=== PATIENT | female | born 1955 | race Hispanic/Latino ===

== ENCOUNTER 2016-07-15 07:58 | Outpatient (CLI) | payer OTHER ==
--- NOTE | 2016-07-15 13:14 | Cat Scan Report ---
CT CHEST WITHOUT CONTRAST: 07/15/16 07:58:00 CLINICAL: Secondary polycythemia. Lung cancer screening. TECHNIQUE: Volumetric acquisition and 1.25 mm axial scan reconstructions without contrast. Sagittal and coronal reformats were performed. FINDINGS: The lungs are clear. No pulmonary nodule or mass. Mild lingular subsegmental atelectasis. No endobronchial mass. Small mediastinal lymph nodes. The largest lymph node is a retrocaval pretracheal lymph node measuring 1.2 x 1.1 cm. No hilar lymphadenopathy. The heart is normal size. Small pericardial effusion and mild thickening of the pericardium. Ectasia of the aorta and pulmonary arteries. The ascending aorta measures 3.9 cm in the main pulmonary artery measures 3.5 cm. The descending thoracic aorta measures 2.3 cm. Moderate calcification of the aorta. Small bilateral axillary lymph nodes. No supraclavicular or axillary lymphadenopathy. Normal trachea and esophagus. The thyroid is not imaged. The upper abdomen is remarkable for bilateral nonspecific perinephric stranding. The spleen is normal and measures 9 cm diameter. Mild degenerative change in the spine. IMPRESSION: 1. No evidence of lung cancer. 2. Probably benign mediastinal lymph nodes. 3. 3.9 cm fusiform aneurysm of the ascending aorta. 4. Ectasia of the main pulmonary artery and branch arteries. 5. Small pericardial effusion and mild pericardial thickening.
== END 2016-07-15 07:59 | disposition home or self-care (01) ==
LOC: SPVIMAG 07:58
PROVIDERS: ATTEND Internal Medicine Hematology
DX: Z12.2 Encounter for screening for malignant neoplasm of respiratory organs (principal); D72.829 Elevated white blood cell count, unspecified; I31.3 Pericardial effusion (noninflammatory); I70.0 Atherosclerosis of aorta; M47.899 Other spondylosis, site unspecified; I77.89 Other specified disorders of arteries and arterioles
CPT/HCPCS: 71250

== ENCOUNTER 2017-05-18 07:38 | Day surgery (SDC) | payer OTHER ==
[2017-05-18] MEDS ORDERED: ECOTRIN PO NR (08:00)
[2017-05-18] MEDS ORDERED: NACL 0.9% 500 ML 500 ML IV SCH (08:00)
[2017-05-18 08:18] LABS: Basophils # (Auto) 0.1 K/mm3 (0.0-0.1); Basophils % (Auto) 0.8 % (0.0-1.8); Eosinophils # (Auto) 0.3 K/mm3 (0.0-0.4); Eosinophils % (Auto) 2.8 % (0.0-4.3); Hematocrit 52.7 % (30.3-42.9); Lymphocytes # (Auto) 2.8 K/mm3 (1.2-5.4); Lymphocytes % (Auto) 26.7 % (13.4-35.0); Mean Corpuscular HGB Conc 32 % (30-34); Mean Corpuscular Hemoglobin 28 pg (28-32); Mean Corpuscular Volume 87 fl (79-97); Monocytes # (Auto) 0.6 K/mm3 (0.0-0.8); Monocytes % (Auto) 5.5 % (0.0-7.3); Platelet Count 212 K/mm3 (140-440); Red Blood Count 6.08 M/mm3 (3.65-5.03); Red Cell Distribution Width 15.9 % (13.2-15.2)
[2017-05-18 08:29] LABS: INR 1.06 (0.87-1.13)
[2017-05-18 08:59] LABS: BUN/Creatinine Ratio 27; Blood Urea Nitrogen 16 mg/dL (7-17); Calcium 8.8 mg/dL (8.4-10.2); Hemolysis Index 31
[2017-05-18] MEDS ORDERED: HEPARIN/NS 5000 UNIT/500ML(CATH LAB) 1,000 ML IR ONE (10:20)
[2017-05-18] MEDS ORDERED: CALAN ONE (10:21)
[2017-05-18] MEDS ORDERED: XYLOCAINE 2% INFILTRATI ONE (10:21)
[2017-05-18] MEDS ORDERED: HEPARIN 10,000 UNITS/10 ML ONE (10:21)
[2017-05-18] MEDS: SUBLIMAZE ONE ×2 (10:41→10:46)
[2017-05-18] MEDS: VERSED ONE ×2 (10:41→10:46)
--- NOTE | 2017-05-18 11:27 | Short Stay Summary ---
Short Stay Documentation Date of service: 05/18/17 - History H&P: obtained from office - Allergies and Medications Current Medications: Allergies No Known Allergies Allergy (Unverified 04/05/15 13:17) Home Medications Medication Instructions Recorded Confirmed Last Taken Type ALPRAZolam [Xanax] 1 mg PO TID 05/18/17 05/18/17 05/17/17 History AtorvaSTATin [Lipitor] 80 mg PO QHS 05/18/17 05/18/17 05/17/17 History Empagliflozin/Linagliptin 1 tab PO QAM 05/18/17 05/18/17 05/17/17 History [Glyxambi 25 mg-5 mg Tablet] Glimepiride [Amaryl] 4 mg PO BID 05/18/17 05/18/17 05/17/17 History Levothyroxine Sodium [Synthroid] 175 mcg PO QDAY 05/18/17 05/18/17 05/17/17 History Lisinopril [Zestril] 10 mg PO QDAY 05/18/17 05/18/17 05/18/17 06:30 History Sertraline [Zoloft] 100 mg PO QDAY 05/18/17 05/18/17 05/17/17 History Warfarin [Coumadin] 10 mg PO QDAY 05/18/17 05/18/17 05/14/17 History lamoTRIgine [LaMICtal Xr] 100 mg PO QDAY 05/18/17 05/18/17 05/17/17 History Active Medications Sodium Chloride (Nacl 0.9% 500 Ml) 500 mls @ 50 mls/hr IV DIRECT CARLY Stop: 05/18/17 17:59 Last Admin: 05/18/17 08:35 Dose: 50 mls/hr - Brief post op/procedure progress note Date of procedure: 05/18/17 Pre-op diagnosis: abnormal stress test Post-op diagnosis: same Procedure: LHC - see cath report Anesthesia: local Estimated blood loss: none Condition: stable - Disposition Condition at discharge: Stable Disposition: [id number] TO HOME OR SELFCARE - Discharge Diagnoses (1) Abnormal stress test Status: Ruled-out Short Stay Discharge Plan Activity: advance as tolerated Diet: low fat, low cholesterol, low salt Wound: open to air, keep clean and dry, per your surgeon's advice Follow up with: DANIEL LEARY MD [Primary Care Provider] - 7 Days ELOINA JOYNER MD [Staff Physician] - 7 Days
--- NOTE | 2017-05-18 12:30 | Cardiac Catherization Report ---
CARDIAC CATHETERIZATION REPORT INDICATION FOR PROCEDURE: A 61-year-old female who is a chronic smoker and diabetic, history of abdominal aortic aneurysm repair done many years ago, presently on warfarin for many years. She has a IV Lexiscan nuclear imaging performed, which showed evidence of mild mid anterior ischemia with normal ejection fraction. Holter monitor showed APCs and PVCs. She is still getting shortness of breath, hence for further evaluation for her abnormal nuclear imaging along with shortness of breath. She was scheduled for cardiac catheterization for definitive diagnosis and treatment. The patient is aware of the procedure, potential complications, and the alternatives of therapy available. DESCRIPTION OF PROCEDURE: The patient was brought to the catheterization laboratory in a fasting condition. The patient was sedated with IV Versed at 10:40 a.m. Subsequently, local anesthesia was given in the right wrist area followed by getting right radial access using right radial artery. Subsequently, a [place] slender sheath was used. A [place] multipurpose catheter was used to obtain the angiograms of the left ventricle in [place] projection followed by angiograms of the left coronary artery were obtained with a [place] TIG catheter and angiograms of the right coronary artery were obtained by using the [place] right coronary catheter. At the end of the procedure, catheter and sheath were removed. Good hemostasis was achieved with pressure bandage. The patient tolerated the procedure well. No untoward complications were noted. Moderate sedation:Patient was evaluated prior administering sedation,was given iv Versed and iv Fentanyl at 10:40 a.m. and was monitored in room until 11:04 a.m. The patient is hemodynamically stable. Her oxygen saturation has been stable throughout the procedure and monitored continuously. Following findings were noted. HEMODYNAMICS: 1. Opening aortic pressure 122/59, left ventricular pressure 134/28. No gradient across the aortic valve. Estimated ejection fraction 55-60%. 2. Left ventriculogram done in [place] projection showed normal sized left ventricle with normal contractility. End-diastolic and systolic volumes are normal. Estimated end diastolic pressure of 28 mmHg. 3. Right coronary artery arises normally from right coronary cusp, codominant vessel, with fairly large PDA, but no LV branches, angiographically smooth and normal. 4. Left coronary artery arises normally from left coronary cusp. Left main is short, immediately dividing into LAD and distal diagonal branches. Also circumflex artery and its marginal branches are angiographically smooth and normal. LAD and its branch are angiographically smooth and normal. FINAL IMPRESSION: Normal sized left ventricle with normal contractility. Elevated end diastolic pressure of 28 mmHg. Normal coronary anatomy, ejection fraction 55-60%. Mitral regurgitation could not be evaluated because of limited amount of dye injected. JOB# [id number] [facility]O [facility]
[2017-05-20 11:58] VITALS: BP 135/73
== END 2017-05-18 14:55 | disposition home or self-care (01) ==
LOC: CATHLABREC 07:38
PROVIDERS: ATTEND Internal Medicine
DX: R94.39 Abnormal result of other cardiovascular function study (principal); R06.02 Shortness of breath; E05.00 Thyrotoxicosis with diffuse goiter without thyrotoxic crisis or storm; E11.9 Type 2 diabetes mellitus without complications; E78.5 Hyperlipidemia, unspecified; Z98.890 Other specified postprocedural states
CPT/HCPCS: 36415; 80048; 85025; 85610; 85730; 93005; 93010; 93458; C1887; C1894; J1644; J2250; J3010; J7040; Q9967